=== PATIENT | female | born 1965 | race Caucasian/White ===

== ENCOUNTER 2017-12-04 12:24 | Inpatient (IN) | payer OTHER ==
[~2017-12-04] VITALS: Ht 157.5 cm; Wt 140.0 kg
[~2017-12-04 12:24] MED LIST: ANUSOL SUP1 SUPP.REC RC; CARAFATE1 GM PO; DIOVAN; DIOVAN320 MG PO; FLONASE16 GM NASAL; FLOVENT DISKU250 MCG IH; HEARTBURN RELI150 M1 PO; HYDRALAZINE HCL25 MG PO; Intestinex CAP PO; LEVOTHYROXINE175 MCG PO; LEVSIN/SL0.125 MG PO; NORVAC; NORVASC10 MG PO; NeurRONTin 100mg cap PO; OXYC1TAB9 PO; PERCOCET 5/321 UDTAB PO; POLY119PG PO; PREDNISONE10 MG PO; PROCTOFOAM-HC 110 GM RC; PROTONIX40 MG PO; SUCRALFATE1 GM/10 ML PO; SYNTHROID150 MCG PO; SYNTHROID200 MCG; Synthroid PO; TECTURNA; TEOFILINA; THEOPHYLLINE400 MG PO; Theo-24 PO; XOPENEX HFA15 GM IH
[2017-12-17] MEDS ORDERED: IPRATROPIU0.2 MG/1 M IH (10:00)
[2017-12-17] MEDS ORDERED: NEURONTIN300 MG PO (10:01)
[2017-12-17] MEDS ORDERED: BENZONATATE200 M1 PO (10:02)
[2017-12-17] MEDS ORDERED: FAMOTIDINE20 MG PO (10:03)
[2017-12-17] MEDS ORDERED: MONTELUKAST SOD10 MG PO (10:03)
[2017-12-17] MEDS ORDERED: LEVOTHYROXINE175 MCG PO (10:03)
[2017-12-17] MEDS ORDERED: DIOVAN HCT 3201 EAC1 PO (10:05)
[2017-12-17] MEDS ORDERED: Intestinex CAP PO (10:07)
[2017-12-17] MEDS ORDERED: GUAIFENESIN AC C5 ML PO (10:07)
[2017-12-17] MEDS ORDERED: AVAPRO300 MG PO (10:07)
== END 2017-12-17 10:32 | disposition home or self-care (01) | DRG 203 ==
LOC: ER 12:24 → MEDI 16:57 → MEDJ 16:57
PROC: 3E0F7GC Introduction of Other Therapeutic Substance into Respiratory Tract, Via Natural or Artificial Opening (ICD-10-PCS; principal; 2017-12-04)
PROC: 4A033R1 Measurement of Arterial Saturation, Peripheral, Percutaneous Approach (ICD-10-PCS; 2017-12-04)
PROC: BW24ZZZ Computerized Tomography (CT Scan) of Chest and Abdomen (ICD-10-PCS; 2017-12-05)
PROC: 4A12X4Z Monitoring of Cardiac Electrical Activity, External Approach (ICD-10-PCS; 2017-12-15)
DX: J45.41 Moderate persistent asthma with (acute) exacerbation (principal); G47.33 Obstructive sleep apnea (adult) (pediatric); I10 Essential (primary) hypertension; E03.8 Other specified hypothyroidism; Z98.84 Bariatric surgery status; J04.0 Acute laryngitis; J20.9 Acute bronchitis, unspecified; M94.0 Chondrocostal junction syndrome [Tietze]; R19.7 Diarrhea, unspecified

== ENCOUNTER 2018-09-19 04:53 | Inpatient (IN) | payer OTHER ==
[~2018-09-19] VITALS: Ht 160 cm; Wt 95.3 kg
[~2018-09-19 04:53] MED LIST changes: +AVAPRO300 MG PO; +BENZONATATE200 M1 PO; +DIOVAN HCT 3201 EAC1 PO; +FAMOTIDINE20 MG PO; +GUAIFENESIN AC C5 ML PO; +IPRATROPIU0.2 MG/1 M IH; +MONTELUKAST SOD10 MG PO; +NEURONTIN300 MG PO
[2018-09-23] MEDS ORDERED: THEOCHRON200 MG PO (10:52)
== END 2018-10-04 14:56 | disposition home or self-care (01) | DRG 191 ==
LOC: ER 04:53 → SEC-K 14:46 → MEDJ 14:46
PROVIDERS: ADMIT Internal Medicine
PROC: 4A033R1 Measurement of Arterial Saturation, Peripheral, Percutaneous Approach (ICD-10-PCS; principal; 2018-09-19)
PROC: 3E0F7GC Introduction of Other Therapeutic Substance into Respiratory Tract, Via Natural or Artificial Opening (ICD-10-PCS; 2018-09-19)
PROC: 8E0ZXY6 Isolation (ICD-10-PCS; 2018-09-19)
PROC: BT4JZZZ Ultrasonography of Kidneys and Bladder (ICD-10-PCS; 2018-09-23)
PROC: BU46ZZZ Ultrasonography of Uterus (ICD-10-PCS; 2018-09-25)
DX: J44.1 Chronic obstructive pulmonary disease with (acute) exacerbation (principal); K27.3 Acute peptic ulcer, site unspecified, without hemorrhage or perforation; J45.51 Severe persistent asthma with (acute) exacerbation; N17.9 Acute kidney failure, unspecified; B37.89 Other sites of candidiasis; J10.1 Influenza due to other identified influenza virus with other respiratory manifestations; Z98.84 Bariatric surgery status; E11.9 Type 2 diabetes mellitus without complications; Z79.4 Long term (current) use of insulin; I10 Essential (primary) hypertension; G47.31 Primary central sleep apnea; M94.0 Chondrocostal junction syndrome [Tietze]; Z88.8 Allergy status to other drugs, medicaments and biological substances; B95.7 Other staphylococcus as the cause of diseases classified elsewhere

== ENCOUNTER 2021-11-22 12:57 | Emergency (ER) | payer OTHER ==
[~2021-11-22] VITALS: Ht 157.5 cm; Wt 97.5 kg
[~2021-11-22 12:57] MED LIST changes: +THEOCHRON200 MG PO
[2021-11-22] MEDS ORDERED: PRILOSEC OTC20 MG PO (17:58)
[2021-11-22] MEDS ORDERED: CARAFATE1 GM PO (17:58)
[2021-11-22] MEDS ORDERED: PEPCID AC20 MG PO (17:58)
== END 2021-11-22 18:12 | disposition home or self-care (01) ==
LOC: ER 12:57
DX: I10 Essential (primary) hypertension (principal); K62.5 Hemorrhage of anus and rectum

== ENCOUNTER 2022-04-24 01:30 | Inpatient (IN) | payer OTHER ==
[~2022-04-24] VITALS: Ht 121.9 cm; Wt 97.5 kg
[~2022-04-24 01:30] MED LIST changes: +PEPCID AC20 MG PO; +PRILOSEC OTC20 MG PO
[2022-04-25] MEDS ORDERED: OMEPRAZOLE20 MG (08:58)
[2022-05-18] MEDS ORDERED: AMLODIPINE BESY10 MG PO (10:04)
[2022-05-18] MEDS ORDERED: AVAPRO300 MG PO (10:05)
[2022-05-18] MEDS ORDERED: PANTOPRAZOLE SO40 MG PO (10:06)
[2022-05-18] MEDS ORDERED: BENZONATATE200 M1 PO (10:06)
[2022-05-18] MEDS ORDERED: CARAFATE1 GM PO (10:07)
[2022-05-18] MEDS ORDERED: PREDNISONE20 MG PO (10:07)
[2022-05-18] MEDS ORDERED: CLOTRIMAZOLE10 MG MM (10:08)
[2022-05-18] MEDS ORDERED: PROAIR HFA8.5 GM IH (10:13)
[2022-05-18] MEDS ORDERED: Neurin-Sl Tablet Sl SL (10:13)
[2022-05-18] MEDS ORDERED: FUSION PLUS CA1 EACH PO (10:17)
== END 2022-05-18 13:03 | disposition home or self-care (01) | DRG 811 ==
LOC: ER 01:30 → ICU-2 14:27 → ICU 04-26 15:23 → MEDJ 05-11 23:09
PROVIDERS: ADMIT Internal Medicine; ATTEND Internal Medicine
PROC: BW21ZZZ Computerized Tomography (CT Scan) of Abdomen and Pelvis (ICD-10-PCS; principal; 2022-04-24)
PROC: 02HV33Z Insertion of Infusion Device into Superior Vena Cava, Percutaneous Approach (ICD-10-PCS; 2022-04-24)
PROC: 3E0F7GC Introduction of Other Therapeutic Substance into Respiratory Tract, Via Natural or Artificial Opening (ICD-10-PCS; 2022-04-24)
PROC: BW40ZZZ Ultrasonography of Abdomen (ICD-10-PCS; 2022-04-25)
PROC: 30233R1 Transfusion of Nonautologous Platelets into Peripheral Vein, Percutaneous Approach (ICD-10-PCS; 2022-04-25)
PROC: 3E0G8GC Introduction of Other Therapeutic Substance into Upper GI, Via Natural or Artificial Opening Endoscopic (ICD-10-PCS; 2022-04-25)
PROC: BW4GZZZ Ultrasonography of Pelvic Region (ICD-10-PCS; 2022-04-26)
PROC: XW033E5 Introduction of Remdesivir Anti-infective into Peripheral Vein, Percutaneous Approach, New Technology Group 5 (ICD-10-PCS; 2022-05-04)
PROC: 4A12X4Z Monitoring of Cardiac Electrical Activity, External Approach (ICD-10-PCS; 2022-05-12)
DX: D50.0 Iron deficiency anemia secondary to blood loss (chronic) (principal); U07.1 COVID-19; J44.1 Chronic obstructive pulmonary disease with (acute) exacerbation; K62.5 Hemorrhage of anus and rectum; K92.0 Hematemesis; R65.10 Systemic inflammatory response syndrome (SIRS) of non-infectious origin without acute organ dysfunction; E66.01 Morbid (severe) obesity due to excess calories; Z68.36 Body mass index [BMI] 36.0-36.9, adult; Z98.84 Bariatric surgery status; Z87.11 Personal history of peptic ulcer disease; I10 Essential (primary) hypertension; G47.30 Sleep apnea, unspecified; D75.839 Thrombocytosis, unspecified

== ENCOUNTER 2023-02-25 03:46 | Emergency (ER) | payer OTHER ==
[~2023-02-25] VITALS: Ht 157.5 cm; Wt 93.0 kg
[~2023-02-25 03:46] MED LIST changes: +AMLODIPINE BESY10 MG PO; +CLOTRIMAZOLE10 MG MM; +FUSION PLUS CA1 EACH PO; +Neurin-Sl Tablet Sl SL; +OMEPRAZOLE20 MG; +PANTOPRAZOLE SO40 MG PO; +PREDNISONE20 MG PO; +PROAIR HFA8.5 GM IH
== END 2023-02-25 11:07 | disposition home or self-care (01) ==
LOC: ER 03:46
DX: K29.00 Acute gastritis without bleeding (principal); I10 Essential (primary) hypertension; Z88.8 Allergy status to other drugs, medicaments and biological substances

== ENCOUNTER 2025-07-24 12:32 | Inpatient (IN) | payer OTHER ==
[~2025-07-24] VITALS: Ht 152.4 cm; Wt 72.6 kg
--- NOTE | 2025-07-24 13:00 | NUR ---
PACIENTE ALERTA Y ORIENTADA X 3. REFIERE LISSETH SEMANA CON DEBILIDAD. REFIERE DR GARCIA LE INDICO PASAR A ER. RESULTADO DE LAB. HEMOGLOBINA EN 7.70, HEMATOCRIT 22.90 Y POTASSIUM EN 3.18
[2025-07-24] MEDS ORDERED: COZAAR25 MG PO (13:06)
[2025-07-24] MEDS ORDERED: FAMOtidine 10 MG/ML (4ML VIAL) IV PUSH ONE (15:00)
[2025-07-24] MEDS ORDERED: 0.9 % SODIUM CHLORIDE 1,000 ML IV SCH (15:00)
[2025-07-24] MEDS ORDERED: FAMOTIDINE/PF 20 MG/2 ML VIAL ONE (15:37)
--- NOTE | 2025-07-24 16:26 | NUR ---
SE REALIZA LAB Y SE ADMINISTRA TX SAIMA ORDEN MEDICA BAJO MEDIDAS ASEPTICAS. SE ORIENTA PTE QUIEN REFIERE ENTENDER Y ACEPTAR
[2025-07-24 17:22] LABS: BASO % 0.6 % (0.1-1.2); EOS # 0.03 (0.04-0.54); EOS % 0.9 % (0.7-7.0); LYMPH # 1.52 (1.18-3.74); LYMPH % 45.0 % (19.3-53.1); MONO # 0.34 (0.24-0.82); MONO % 10.1 % (4.7-12.5); NEUT # 1.47 (1.56-6.13); NEUT % 43.4 % (34.0-71.1); RED CELL DISTRIBUTION WIDTH 20.9 % (11.6-14.4)
[2025-07-24 19:22] LABS: ALT/SGPT 19.0 U/L (12-78); AST/SGOT 76.0 U/L (15-37); BILIRUBIN TOTAL 4.58 mg/dL (0.3-1.2); BUN CREA RATIO 9.0 (7.0-25.0); CREATININE SERUM 0.95 mg/dL (0.55-1.02); GFR 60.42; GLOBULINA 4.5 G/DL (2.4-3.5); GLUCOSE FASTING 101.0 mg/dL (65-100); INR 1.81; OSMOLALITY SERUM 280.0 MOSM/KG (275-295)
[2025-07-24] MEDS ORDERED: ACETAMINOPHEN 325 MG TABLET PO PRN (22:00)
[2025-07-24] MEDS ORDERED: ONDANSETRON HCL 4 MG in 0.9 % SODIUM CHLORIDE 50 ML IV PRN (22:00)
[2025-07-24] MEDS ORDERED: ENALAPRILAT DIHYDRATE 1.25 MG/ML VIAL IV PRN (22:00)
[2025-07-25] MEDS ORDERED: POTASSIUM CHLORIDE IN WATER 40 MEQ/100 ML PIGGYBAG IV SCH (01:00)
[2025-07-25 01:50] VITALS: BP 127/78; O2SAT 100
[2025-07-25 08:16] VITALS: BP 110/63; O2SAT 97
[2025-07-25] MEDS ORDERED: PANTOPRAZOLE SODIUM 40 MG/VIAL VIAL IV SCH (09:00)
[2025-07-25] MEDS ORDERED: ACETAMINOPHEN 500 MG GEL..CAP PO PRN (11:00)
[2025-07-25 16:00] VITALS: BP 130/86; O2SAT 99
[2025-07-25 21:05] LABS: BASO % 0.6 % (0.1-1.2); EOS # 0.08 (0.04-0.54); EOS % 1.5 % (0.7-7.0); LYMPH # 0.89 (1.18-3.74); LYMPH % 17.0 % (19.3-53.1); MONO # 0.46 (0.24-0.82); MONO % 8.8 % (4.7-12.5); NEUT # 3.77 (1.56-6.13); NEUT % 71.7 % (34.0-71.1); RED CELL DISTRIBUTION WIDTH 19.3 % (11.6-14.4)
[2025-07-25 21:27] LABS: ALT/SGPT 33.0 U/L (12-78); AST/SGOT 152.0 U/L (15-37); BILIRUBIN TOTAL 6.4 mg/dL (0.3-1.2); BILIRUBIN,CONJUGATED 3.07 mg/dL (0.0-0.2)
[2025-07-26 00:34] VITALS: BP 118/76; O2SAT 100
[2025-07-26 08:00] VITALS: BP 121/80; O2SAT 99
[2025-07-26 09:59] LABS: BASO % 0.5 % (0.1-1.2); EOS # 0.12 (0.04-0.54); EOS % 3.1 % (0.7-7.0); LYMPH # 1.04 (1.18-3.74); LYMPH % 26.6 % (19.3-53.1); MONO # 0.48 (0.24-0.82); NEUT # 2.24 (1.56-6.13); NEUT % 57.2 % (34.0-71.1); RED CELL DISTRIBUTION WIDTH 19.0 % (11.6-14.4)
[2025-07-26 10:05] LABS: MONO % 12.3 % (4.7-12.5)
[2025-07-26 17:43] VITALS: BP 134/83; O2SAT 99
[2025-07-26 23:36] LABS: FE 33.0 ug/dl (50-170); LDH 449.0 U/L (84-246)
[2025-07-27 02:21] VITALS: BP 117/73; O2SAT 100
[2025-07-27 08:00] VITALS: BP 111/72; O2SAT 92
[2025-07-27] MEDS ORDERED: DIATRIZOATE MEGLUMINE, SODIUM 30 ML BOTTLE PO NR (08:00)
[2025-07-27 10:48] LABS: FOLIC ACID 5.34 ng/ml (4.78-20)
[2025-07-27 14:41] LABS: BASO % 0.5 % (0.1-1.2); EOS # 0.11 (0.04-0.54); EOS % 3.0 % (0.7-7.0); LYMPH # 1.22 (1.18-3.74); LYMPH % 33.2 % (19.3-53.1); MONO # 0.46 (0.24-0.82); NEUT # 1.85 (1.56-6.13); NEUT % 50.5 % (34.0-71.1); RED CELL DISTRIBUTION WIDTH 19.6 % (11.6-14.4)
[2025-07-27 15:20] LABS: MONO % 12.5 % (4.7-12.5)
[2025-07-27 16:00] VITALS: BP 151/83; O2SAT 99
[2025-07-27 23:51] VITALS: BP 124/82; O2SAT 100
[2025-07-28 08:00] VITALS: BP 134/78; O2SAT 99
[2025-07-28 16:00] VITALS: BP 141/78; O2SAT 98
[2025-07-28 23:37] LABS: BASO % 0.9 % (0.1-1.2); EOS # 0.11 (0.04-0.54); EOS % 2.6 % (0.7-7.0); LYMPH # 1.76 (1.18-3.74); LYMPH % 41.0 % (19.3-53.1); MONO # 0.66 (0.24-0.82); MONO % 15.4 % (4.7-12.5); NEUT # 1.71 (1.56-6.13); NEUT % 39.9 % (34.0-71.1); RED CELL DISTRIBUTION WIDTH 19.6 % (11.6-14.4)
[2025-07-29 00:30] VITALS: BP 124/67; O2SAT 97
[2025-07-29 09:00] VITALS: BP 118/75; O2SAT 99
[2025-07-29 12:01] LABS: BASO % 0.8 % (0.1-1.2); EOS # 0.09 (0.04-0.54); EOS % 1.9 % (0.7-7.0); LYMPH # 2.41 (1.18-3.74); LYMPH % 50.5 % (19.3-53.1); MONO # 0.59 (0.24-0.82); NEUT # 1.64 (1.56-6.13); NEUT % 34.4 % (34.0-71.1); RED CELL DISTRIBUTION WIDTH 20.2 % (11.6-14.4)
[2025-07-29 12:02] LABS: MONO % 12.4 % (4.7-12.5)
[2025-07-29 16:14] VITALS: BP 121/83; O2SAT 95
[2025-07-29] MEDS ORDERED: AMINO ACIDS/PROTEIN HYDROLYS 30 ML BLIST.PACK PO SCH (17:00)
[2025-07-30 00:33] VITALS: BP 122/82; O2SAT 98
[2025-07-30 08:52] VITALS: BP 127/78; O2SAT 98
[2025-07-30 15:50] VITALS: BP 123/75; O2SAT 100
[2025-07-31 00:37] VITALS: BP 106/66; O2SAT 99
[2025-07-31 08:00] VITALS: BP 109/64; O2SAT 99
[2025-07-31 10:14] LABS: BASO % 0.9 % (0.1-1.2); EOS # 0.07 (0.04-0.54); EOS % 2.0 % (0.7-7.0); LYMPH # 1.42 (1.18-3.74); LYMPH % 41.2 % (19.3-53.1); MONO # 0.48 (0.24-0.82); NEUT # 1.44 (1.56-6.13); NEUT % 41.7 % (34.0-71.1); RED CELL DISTRIBUTION WIDTH 20.4 % (11.6-14.4)
[2025-07-31 11:01] LABS: MONO % 13.9 % (4.7-12.5)
[2025-07-31 16:00] VITALS: BP 135/71; O2SAT 98
[2025-08-01 00:16] VITALS: BP 114/66; O2SAT 100
[2025-08-01] MEDS ORDERED: MECLIZINE HCL 12.5 MG TABLET PO STA (07:57)
[2025-08-01 08:00] VITALS: BP 129/83; O2SAT 99
[2025-08-01 16:00] VITALS: BP 166/76; O2SAT 100
[2025-08-01] MEDS ORDERED: MECLIZINE HCL 12.5 MG TABLET PO SCH (21:00)
[2025-08-02 00:17] VITALS: BP 123/78; O2SAT 99
[2025-08-02 06:59] LABS: BASO % 1.1 % (0.1-1.2); EOS # 0.07 (0.04-0.54); EOS % 1.9 % (0.7-7.0); LYMPH # 1.57 (1.18-3.74); LYMPH % 43.0 % (19.3-53.1); MONO # 0.49 (0.24-0.82); NEUT # 1.47 (1.56-6.13); NEUT % 40.3 % (34.0-71.1); RED CELL DISTRIBUTION WIDTH 21.8 % (11.6-14.4)
[2025-08-02 07:05] LABS: MONO % 13.4 % (4.7-12.5)
[2025-08-02 08:42] VITALS: BP 124/76; O2SAT 100
[2025-08-02 17:10] VITALS: BP 145/91; O2SAT 100
[2025-08-03 00:23] VITALS: BP 132/78; O2SAT 97
[2025-08-03] MEDS ORDERED: LACTULOSE 20 G/30 ML BLIST.PACK PO STA (07:21)
[2025-08-03 08:57] VITALS: BP 132/86; O2SAT 97
[2025-08-03 13:50] VITALS: O2SAT 100
[2025-08-03] MEDS ORDERED: LACTULOSE 10 G/15 ML ML RECTAL ONE (14:00)
[2025-08-03 16:57] VITALS: BP 154/95; O2SAT 99
[2025-08-03] MEDS ORDERED: OCTREOTIDE ACETATE 0.05MG/ML (50MCG/ML) AMPUL IV NR (19:15)
[2025-08-03] MEDS ORDERED: OCTREOTIDE ACETATE 1,000 MCG/5 ML VIAL IJ SCH (19:15)
[2025-08-03] MEDS ORDERED: PANTOPRAZOLE SODIUM 40 MG/VIAL VIAL IV SCH (19:15)
[2025-08-03] MEDS ORDERED: PANTOPRAZOLE SODIUM 80 MG in 0.9 % SODIUM CHLORIDE 100 ML IV SCH (19:30)
[2025-08-03] MEDS ORDERED: LACTULOSE 20 G/30 ML BLIST.PACK NGT SCH (21:00)
[2025-08-03] MEDS ORDERED: LACTULOSE 20 G/30 ML BLIST.PACK PO SCH (21:00)
[2025-08-03] MEDS ORDERED: OCTREOTIDE ACETATE 1,250 MCG in 0.9 % SODIUM CHLORIDE 250 ML IV SCH (21:00)
[2025-08-04] VITALS (7 sets, daily range): BP systolic 95–125; BP diastolic 58–78; O2SAT 99–100
[2025-08-04] MEDS ORDERED: CARVEDILOL 3.125 MG TABLET PO SCH ×2 (05:00→09:00)
[2025-08-04 08:06] LABS: BASO % 0.6 % (0.1-1.2); EOS # 0.07 (0.04-0.54); EOS % 1.4 % (0.7-7.0); LYMPH # 1.40 (1.18-3.74); LYMPH % 27.5 % (19.3-53.1); MONO # 0.64 (0.24-0.82); NEUT # 2.94 (1.56-6.13); NEUT % 57.7 % (34.0-71.1); RED CELL DISTRIBUTION WIDTH 22.5 % (11.6-14.4)
[2025-08-04 08:13] LABS: ALT/SGPT 27.0 U/L (12-78); AST/SGOT 109.0 U/L (15-37); BILIRUBIN TOTAL 5.81 mg/dL (0.3-1.2); BUN CREA RATIO 18.0 (7.0-25.0); CREATININE SERUM 0.9 mg/dL (0.55-1.02); GFR 64.31; GLOBULINA 3.8 G/DL (2.4-3.5); GLUCOSE FASTING 85.0 mg/dL (65-100); OSMOLALITY SERUM 295.0 MOSM/KG (275-295)
[2025-08-04 08:46] LABS: MONO % 12.6 % (4.7-12.5)
[2025-08-04] MEDS ORDERED: CEFTRIAXONE SODIUM 2,000 MG VIAL IV SCH (09:00)
[2025-08-04] MEDS ORDERED: LACTULOSE 20 G/30 ML BLIST.PACK NGT SCH (13:00)
[2025-08-05 04:00] VITALS: BP 122/75; O2SAT 100
[2025-08-05 07:04] VITALS: BP 138/39; O2SAT 100
[2025-08-05 07:29] VITALS: BP 119/69; O2SAT 100
[2025-08-05] MEDS ORDERED: PANTOPRAZOLE SODIUM 40 MG/VIAL VIAL ONE (07:29)
[2025-08-05 12:00] VITALS: BP 113/69; O2SAT 100
[2025-08-05 16:43] VITALS: BP 130/71
[2025-08-06 00:14] LABS: BASO % 1.0 % (0.1-1.2); EOS # 0.12 (0.04-0.54); EOS % 4.0 % (0.7-7.0); LYMPH # 1.19 (1.18-3.74); LYMPH % 39.4 % (19.3-53.1); MONO # 0.35 (0.24-0.82); MONO % 11.6 % (4.7-12.5); NEUT # 1.32 (1.56-6.13); NEUT % 43.7 % (34.0-71.1); RED CELL DISTRIBUTION WIDTH 22.5 % (11.6-14.4)
[2025-08-06 00:26] LABS: ALT/SGPT 28.0 U/L (12-78); AST/SGOT 108.0 U/L (15-37); BILIRUBIN TOTAL 4.44 mg/dL (0.3-1.2); BUN CREA RATIO 17.0 (7.0-25.0); CREATININE SERUM 0.92 mg/dL (0.55-1.02); GFR 62.7; GLOBULINA 3.8 G/DL (2.4-3.5); GLUCOSE FASTING 95.0 mg/dL (65-100); OSMOLALITY SERUM 292.0 MOSM/KG (275-295)
[2025-08-06 02:33] VITALS: BP 121/70; O2SAT 96
[2025-08-06 09:03] VITALS: BP 126/70; O2SAT 95
[2025-08-06] MEDS ORDERED: DIPHENHYDRAMINE HCL 50 MG/ML VIAL 1ML IV ONE (14:15)
[2025-08-06] MEDS ORDERED: MIDAZOLAM HCL 2 MG/2 ML VIAL IV ONE (14:15)
[2025-08-06] MEDS ORDERED: fentaNYL CITRATE 50 MCG/ML AMPUL IV PUSH ONE (14:15)
[2025-08-06 19:15] VITALS: BP 140/77; O2SAT 100
[2025-08-07 03:22] VITALS: BP 129/76; O2SAT 99
[2025-08-07 07:59] LABS: BUN CREA RATIO 19.0 (7.0-25.0); CREATININE SERUM 0.75 mg/dL (0.55-1.02); GFR 79.37; GLUCOSE FASTING 91.0 mg/dL (65-100); OSMOLALITY SERUM 291.0 MOSM/KG (275-295)
[2025-08-07 08:34] LABS: BASO % 1.0 % (0.1-1.2); EOS # 0.14 (0.04-0.54); EOS % 4.6 % (0.7-7.0); LYMPH # 1.22 (1.18-3.74); LYMPH % 40.0 % (19.3-53.1); MONO # 0.39 (0.24-0.82); NEUT # 1.26 (1.56-6.13); NEUT % 41.3 % (34.0-71.1); RED CELL DISTRIBUTION WIDTH 22.6 % (11.6-14.4)
[2025-08-07 09:07] VITALS: BP 146/80; O2SAT 98
[2025-08-07 10:30] LABS: MONO % 12.8 % (4.7-12.5)
[2025-08-07 17:37] VITALS: BP 158/83; O2SAT 98
[2025-08-08 02:09] VITALS: BP 123/80; O2SAT 100
[2025-08-08 08:20] LABS: BASO % 1.1 % (0.1-1.2); EOS # 0.13 (0.04-0.54); EOS % 4.6 % (0.7-7.0); LYMPH # 1.07 (1.18-3.74); LYMPH % 37.8 % (19.3-53.1); MONO # 0.39 (0.24-0.82); NEUT # 1.19 (1.56-6.13); NEUT % 42.0 % (34.0-71.1); RED CELL DISTRIBUTION WIDTH 22.6 % (11.6-14.4)
[2025-08-08] MEDS ORDERED: PANTOPRAZOLE SODIUM 40 MG/VIAL VIAL IV SCH (09:00)
[2025-08-08] MEDS ORDERED: PANTOPRAZOLE SODIUM 80 MG in 0.9 % SODIUM CHLORIDE 100 ML IV SCH (09:00)
[2025-08-08 09:54] VITALS: BP 127/78; O2SAT 98
[2025-08-08 11:00] LABS: MONO % 13.8 % (4.7-12.5)
[2025-08-08] MEDS ORDERED: SPIRONOLACTONE 25 MG TABLET PO SCH (16:26)
[2025-08-08] MEDS ORDERED: POTASSIUM BICARBONATE/CIT AC 25 MEQ TABLET.EFF PO SCH (17:00)
[2025-08-08 17:01] VITALS: BP 134/73; O2SAT 96
[2025-08-08] MEDS ORDERED: GUAIFENESIN 200 MG/10 ML BLIST.PACK PO SCH (18:16)
[2025-08-09 03:30] VITALS: BP 123/77; O2SAT 100
[2025-08-09] MEDS ORDERED: LACTULOSE 20 G/30 ML BLIST.PACK PO SCH (08:00)
[2025-08-09 09:05] VITALS: BP 134/76; O2SAT 97
[2025-08-09 18:26] VITALS: BP 152/98
[2025-08-10 04:26] VITALS: BP 170/95; O2SAT 98
[2025-08-10 08:22] VITALS: BP 149/74; O2SAT 98
[2025-08-10 22:00] VITALS: BP 112/76
[2025-08-11 02:54] VITALS: BP 131/80; O2SAT 98
[2025-08-11 09:09] VITALS: BP 138/89; O2SAT 100
[2025-08-11] MEDS ORDERED: LACTULOSE 10 G/15 ML ML RECTAL SCH (12:00)
[2025-08-11 20:07] VITALS: BP 160/90
[2025-08-12 01:54] VITALS: BP 132/72; O2SAT 99
[2025-08-12 08:26] VITALS: BP 136/80; O2SAT 100
[2025-08-12 16:29] VITALS: BP 114/71; O2SAT 96
[2025-08-13 01:07] VITALS: BP 107/69; O2SAT 100
[2025-08-13 08:47] VITALS: BP 125/75; O2SAT 98
[2025-08-13 17:17] VITALS: BP 134/73; O2SAT 100
[2025-08-14 03:09] VITALS: BP 128/85; O2SAT 99
[2025-08-14 09:00] VITALS: BP 131/72; O2SAT 100
[2025-08-14] MEDS ORDERED: LIDOCAINE HCL 60 ML,MAG HYDROX/ALUMINUM HYD/SIMETH 60 ML,DIPHENHYDRAMINE HCL 150 MG MM SCH (12:00)
[2025-08-14 12:47] LABS: BASO % 0.7 % (0.1-1.2); EOS # 0.13 (0.04-0.54); EOS % 3.0 % (0.7-7.0); LYMPH # 1.80 (1.18-3.74); LYMPH % 40.9 % (19.3-53.1); MONO # 0.47 (0.24-0.82); MONO % 10.7 % (4.7-12.5); NEUT # 1.96 (1.56-6.13); NEUT % 44.5 % (34.0-71.1); RED CELL DISTRIBUTION WIDTH 24.4 % (11.6-14.4)
[2025-08-14 13:39] LABS: BUN CREA RATIO 17.0 (7.0-25.0); CREATININE SERUM 0.9 mg/dL (0.55-1.02); GFR 64.31; GLUCOSE FASTING 104.0 mg/dL (65-100); OSMOLALITY SERUM 279.0 MOSM/KG (275-295)
[2025-08-14 16:44] VITALS: BP 149/77
[2025-08-15 03:15] VITALS: BP 135/83; O2SAT 95
[2025-08-15 11:01] VITALS: BP 125/78; O2SAT 100
[2025-08-15] MEDS ORDERED: LACTULOSE 20 G/30 ML BLIST.PACK PO SCH (13:00)
[2025-08-15 17:35] VITALS: BP 165/97
[2025-08-16 00:32] LABS: BASO % 0.7 % (0.1-1.2); EOS # 0.19 (0.04-0.54); EOS % 3.5 % (0.7-7.0); LYMPH # 2.07 (1.18-3.74); LYMPH % 38.5 % (19.3-53.1); MONO # 0.75 (0.24-0.82); NEUT # 2.33 (1.56-6.13); NEUT % 43.4 % (34.0-71.1); RED CELL DISTRIBUTION WIDTH 24.9 % (11.6-14.4)
[2025-08-16 01:06] LABS: MONO % 13.9 % (4.7-12.5)
[2025-08-16 01:08] VITALS: BP 125/71; O2SAT 99
[2025-08-16 06:18] LABS: BASO % 0.6 % (0.1-1.2); EOS # 0.19 (0.04-0.54); EOS % 3.6 % (0.7-7.0); LYMPH # 2.00 (1.18-3.74); LYMPH % 38.0 % (19.3-53.1); MONO # 0.65 (0.24-0.82); NEUT # 2.38 (1.56-6.13); NEUT % 45.2 % (34.0-71.1); RED CELL DISTRIBUTION WIDTH 24.6 % (11.6-14.4)
[2025-08-16 06:39] LABS: MONO % 12.4 % (4.7-12.5)
[2025-08-16] MEDS ORDERED: LACTULOSE 10 G/15 ML ML RECTAL SCH ×2 (09:00→12:00)
[2025-08-16 09:26] VITALS: BP 134/75; O2SAT 96
[2025-08-16 22:03] VITALS: BP 113/74
[2025-08-17 03:33] VITALS: BP 130/70; O2SAT 100
[2025-08-17 09:45] VITALS: BP 126/89; O2SAT 99
[2025-08-17 18:33] VITALS: BP 122/69; O2SAT 97
[2025-08-17] MEDS ORDERED: MAG HYDROX/ALUMINUM HYD/SIMETH 30 ML BLIST.PACK PO ONE (23:22)
[2025-08-18 02:05] VITALS: BP 136/70; O2SAT 95
[2025-08-18] MEDS ORDERED: MAG HYDROX/ALUMINUM HYD/SIMETH 30 ML BLIST.PACK PO ONE (03:12)
[2025-08-18 08:29] VITALS: BP 132/74; O2SAT 99
[2025-08-18 17:23] VITALS: BP 148/76; O2SAT 100
== END 2025-08-18 21:51 | disposition home or self-care (01) | DRG 377 ==
LOC: ER 12:32 → SURG 21:51 → SURH 21:51 → ICU 08-04 02:34 → MEDI 08-05 15:06
PROVIDERS: General Practice; Internal Medicine; Student in an Organized Health Care Education/Training Program; Surgery Plastic and Reconstructive Surgery; ADMIT Internal Medicine; ATTEND Internal Medicine
PROC: 30243N1 Transfusion of Nonautologous Red Blood Cells into Central Vein, Percutaneous Approach (ICD-10-PCS; 2025-07-25)
PROC: BW21YZZ Computerized Tomography (CT Scan) of Abdomen and Pelvis using Other Contrast (ICD-10-PCS; 2025-07-27)
PROC: C51DYZZ Planar Nuclear Medicine Imaging of Bilateral Lower Extremity Veins using Other Radionuclide (ICD-10-PCS; 2025-07-27)
PROC: 30243R1 Transfusion of Nonautologous Platelets into Central Vein, Percutaneous Approach (ICD-10-PCS; 2025-07-27)
PROC: BW28ZZZ Computerized Tomography (CT Scan) of Head (ICD-10-PCS; 2025-08-03)
PROC: 4A12X4Z Monitoring of Cardiac Electrical Activity, External Approach (ICD-10-PCS; 2025-08-03)
PROC: 02HV33Z Insertion of Infusion Device into Superior Vena Cava, Percutaneous Approach (ICD-10-PCS; 2025-08-04)
PROC: 0DJ08ZZ Inspection of Upper Intestinal Tract, Via Natural or Artificial Opening Endoscopic (ICD-10-PCS; principal; 2025-08-06)
DX: K92.1 Melena (principal); G93.41 Metabolic encephalopathy; J96.90 Respiratory failure, unspecified, unspecified whether with hypoxia or hypercapnia; D64.9 Anemia, unspecified; K92.2 Gastrointestinal hemorrhage, unspecified; I10 Essential (primary) hypertension; D69.6 Thrombocytopenia, unspecified; K76.9 Liver disease, unspecified; D50.9 Iron deficiency anemia, unspecified; K12.30 Oral mucositis (ulcerative), unspecified